=== PATIENT | female | born 1965 | race Caucasian/White ===

== ENCOUNTER 2018-09-07 00:59 | Emergency (ER) | payer SELFPAY ==
[~2018-09-07] VITALS: Ht 154.9 cm; Wt 72.6 kg
[2018-09-07 01:11] VITALS: Ht 154.9 cm; Wt 72.6 kg
[2018-09-07 04:43] VITALS: BP 149/89
== END 2018-09-07 04:30 | disposition home or self-care (01) ==
LOC: ED 00:59
DX: E11.40 Type 2 diabetes mellitus with diabetic neuropathy, unspecified (principal); Z87.442 Personal history of urinary calculi
CPT/HCPCS: J1885; J2270